=== PATIENT | male | born 1945 | race Caucasian/White ===

== ENCOUNTER 2018-03-20 07:16 | Outpatient (CLI) | payer MEDICARE, BC ==
--- NOTE | 2018-03-20 08:18 | RAD ---
FRONTAL AND LATERAL IMAGING CHEST: DATE: 03/20/18. COMPARISON: 05/18/17. HISTORY: Bladder cancer, kidney stones, assess lung parenchyma. FINDINGS: Postsurgical anchors overlie the left humeral head. There is increased linear interstitial density a nd pulmonary hyperinflation, stable. No focal consolidation or alveolar edema. IMPRESSION: Chronic findings as above. No acute findings. POS: [facility]
--- NOTE | 2018-03-20 08:39 | RAD ---
KUB: HISTORY: Bladder cancer. History of kidney stone. COMPARISON: An 05/18/17 CT examination. The bowel gas pattern is nonobstructed. Aortoiliac stent is noted and pos top what appeared to be radical prostatectomy changes are seen. It is difficult to definitively visu hipolito the lower pole left renal calculus, although there is a faint density. Possibly this calculus seen overlying the lower pole of the left kidney. No other findings. IMPRESSION: Left lower pole renal calculus is difficult to definitely visualize. There is a faint density in thi s region, although it does not appear to be dense enough to actually represent the calculus in questi on. POS: [facility]
== END 2018-03-20 07:17 | disposition home or self-care (01) ==
LOC: SCSRAD 07:16
PROVIDERS: ATTEND Urology
DX: C67.9 Malignant neoplasm of bladder, unspecified (principal)
CPT/HCPCS: 71046; 74018

== ENCOUNTER 2018-06-20 06:20 | Inpatient (IN) | payer MEDICARE, BC ==
[2018-06-20] MEDS ORDERED: CEFAZOLIN/Water 2 GM/20 ML SYRINGE ONE (06:33)
[2018-06-20] MEDS ORDERED: Protamine Sulfate 50 MG/5 ML VIAL ONE (06:45)
[2018-06-20] MEDS ORDERED: Heparin 5,000 UNITS/ML VIAL ONE (06:45)
[2018-06-20] MEDS ORDERED: Fentanyl 250 MCG/5 ML VIAL ONE (06:52)
[2018-06-20] MEDS ORDERED: Vecuronium 10 MG VIAL ONE (06:52)
[2018-06-20 07:01] LABS: #Basophils 0.1 thou/uL (0.0-0.2); #Eosinphils 0.3 thou/uL (0.0-0.7); #Lymphocytes 1.6 thou/uL (1.20-3.40); #Monocytes 0.6 thou/uL (0.11-0.59); #Neutrophils 3.9 thou/uL (1.40-6.50); %Basophils 1.3 % (0.0-1.0); %Eosinophils 4.9 % (0.0-10.0); %Lymphocytes 25.4 % (21.0-51.0); %Monocytes 8.6 % (0.0-10.0); %Neutrophils 59.9 % (42.0-75.0); Hemoglobin 13.1 g/dL (14.0-18.0); Mean Corpuscular HGB CONC 33.8 g/dL (32.0-36.0); Mean Corpuscular Hemoglobin 32.8 pg (27.0-31.0); Mean Corpuscular Volume 97.1 fL (78.0-98.0); Mean Platelet Volume 8.5 fL (7.4-10.4); Platelet Count 171 thou/uL (130-400); RBC Distribution Width 12.5 % (11.5-14.5); Red Blood Cell (RBC) Count 3.99 mill/uL (4.70-6.10); White Blood Cell (WBC) Count 6.4 thou/uL (4.8-10.8)
[2018-06-20] MEDS ORDERED: Midazolam HCl 2 mg/2 ml Vial ONE (07:15)
[2018-06-20 07:25] LABS: Anion Gap 14 mmol/L (10-20); BUN (Urea Nitrogen) 62 mg/dL (8.4-25.7); Calc. Creatinine Clearance 20 mL/min (70-130); Carbon Dioxide 18 mmol/L (23-31); Chloride 110 mmol/L (98-107); Estimated GFR-MDRD 12; Glucose 133 mg/dL (83-110); Potassium 4.9 mmol/L (3.5-5.1); Sodium 137 mmol/L (136-145)
[2018-06-20] MEDS ORDERED: Acetaminophen 325 MG TAB PO PRN (07:39)
[2018-06-20] MEDS ORDERED: hydrALAZINE 20 MG/ML VIAL SLOW IVP PRN (07:39)
[2018-06-20] MEDS ORDERED: HYDROcodone/Acetaminophen 5/325 mg Tablet PO PRN ×2 (07:39)
[2018-06-20] MEDS ORDERED: Ondansetron HCl/PF 4 MG/2 ML Vial IVP PRN ×2 (07:39→10:45)
--- NOTE | 2018-06-20 08:08 | RAD ---
CHEST PA AND LATERAL: Date: 06/20/18 HISTORY: 72-year-old male with history of preoperative evaluation. COMPARISON: 03/20/18. FINDINGS: Stable biapical pleural thickening. Heart size within normal limits. No confluent pneumonia, overt ed nemesio, or pleural effusion. IMPRESSION: Stable biapical pleural thickening. No significant acute intrathoracic disease. Atherosclerosis of ao rta. POS: [facility]
[2018-06-20] MEDS ORDERED: CINNAMON BARK PO SCH (09:00)
[2018-06-20] MEDS ORDERED: Non-Formulary Item 1 EACH (Dorzolamide Hcl/Timolol Maleat [Dorzolamide Hcl/Timolol Maleat EA EYE SCH (09:00)
[2018-06-20] MEDS ORDERED: hydrALAZINE 20 MG/ML VIAL ONE (09:44)
--- NOTE | 2018-06-20 10:22 | OP ---
DATE OF PROCEDURE: 06/20/2018 PROCEDURE PERFORMED: Right carotid endarterectomy. PREOPERATIVE DIAGNOSIS: Right carotid stenosis. POSTOPERATIVE DIAGNOSIS: Right carotid stenosis. SURGEON: Donald Anderson M.D. ANESTHESIA: General endotracheal anesthesia. INDICATIONS: The patient is a 72-year-old man with renal insufficiency who on routine followup of his aortoiliac disease was noted to have asymptomatic carotid bruits. Carotid ultrasonography suggested modest disease on the left side, but very high grade stenosis on the right. He is now taken to the operating room for endarterectomy based on the available studies. FINDINGS: Tortuous ICA with good ICA backbleeding. Heavy plaque burden, bulb and proximal ICA associated with a subtotal stenosis. Preshunt clamp time of 7 minutes. Shunt time was 15 minutes. Post-shunt clamp time was 3 minutes. NARRATIVE REPORT: After informed consent was obtained, the patient was taken to the operating room and placed in supine position on the operating table. After the induction of general anesthesia, the patient's neck was extended and rotated towards the left. His right neck was then prepped and draped in sterile fashion. An oblique incision was made in the skin crease on the right neck using a scalpel and electrocautery. The dissection was carried through the subcutaneous tissue and platysma anteromedial to the sternocleidomastoid muscle and internal jugular vein. The common carotid artery was dissected free from the sheath and the vagus nerve and was looped to the vessel loop. The dissection was carried cephalad beyond the level of the hypoglossal nerve and digastric muscle. The ansa cervicalis and sling vessels were divided to allow for adequate exposure of the internal carotid artery beyond the plaque without undue traction on the hypoglossal nerve. The external carotid system was looped and massed with a vessel loop and the internal carotid system was mobilized. After adequate circulation time of heparin, the internal carotid, common carotid, and external carotid systems were sequentially occluded. A longitudinal arteriotomy was made in the distal common carotid artery and extended proximally and distally with Slater scissors. An endarterectomy plane was developed at the level of the bulb, plaque was transected at the common carotid level everted from the external carotid system and then broken up distally. There was a small island of eccentric plaque distally and in order to achieve a clean feathering edge the arteriotomy was extended slightly distally and the plaque broken off distally in the internal carotid. The endarterectomy bed was forcefully irrigated paying particular attention to the distal feathering proximal transection points. An intraluminal carotid shunt was inserted first distally in the internal carotid and then proximally in the common carotid aspirating on the side port of the shunt for allowing antegrade flow through into the internal carotid artery. The endarterectomy bed was then serially irrigated and inspected and debrided until no more mobile debris remained. The arteriotomy was then sewn from either apex running 6-0 Prolene suture with about a 0.5 cm of arteriotomy left to sew, the shunt was clamped, cut, and removed and the remaining arteriotomy was then sewn with the suture line slightly frustrated, the vessels were allowed to forward and back bleed to allow for flushing of any air or residual debris at the arteriotomy or into the external carotid system. The suture line was secured and antegrade flow was allowed first into the external carotid and then into the internal carotid. The wound was inspected for gross hemostasis. There was a fair amount of oozing along the suture line of the internal carotid at the lesser curvature of a sharp bend, but there were no distinct bleeding points. The wound was packed off and heparin was partially reversed with protamine. After several minutes, the packing was removed and hemostasis appeared to be adequate. Surgicel was replaced within the lesser curvature of the internal carotid to guard against kinking and then the platysma was reapproximated with running 3-0 Vicryl. The skin was closed with a running 4-0 Vicryl, subcuticular suture and Steri- Strips. The wound was dressed. The patient was awakened and extubated in the operating room and taken to the recovery area in good condition, following commands with all 4 extremities. [facility]
[2018-06-20] MEDS ORDERED: Promethazine HCl 25 MG/ML VIAL SLOW IVP PRN (10:45)
[2018-06-20] MEDS ORDERED: Promethazine HCl 25 MG/ML VIAL IM PRN (10:45)
[2018-06-20] MEDS ORDERED: Fentanyl 100 MCG/2 ML VIAL ONE (10:50)
[2018-06-20] MEDS ORDERED: Atropine Sulfate 1 mg/10 ml Syringe ONE (11:01)
[2018-06-20 11:52] VITALS: BMI 31.2
[2018-06-20] MEDS: hydrALAZINE 25 MG TAB PO SCH (12:27)
[2018-06-20] MEDS: cloNIDine 0.3 MG TAB PO SCH ×2 (12:27→22:17)
[2018-06-20] MEDS: Dorzolamide HCl/Timolol Maleate 2%/0.5% Ophth Soln 10 ml Bottle EA EYE SCH ×2 (12:27→22:19)
[2018-06-20] MEDS: Terazosin HCl 5 MG CAP PO SCH (12:28)
[2018-06-20] MEDS: Multivit, Therapeutic 1 TAB PO SCH (12:28)
[2018-06-20] MEDS: Loratadine 10 MG TAB PO SCH (12:28)
[2018-06-20] MEDS: Sodium Chloride 0.9% 1,000 ML IV SCH ×2 (12:35→20:29)
[2018-06-20] MEDS ORDERED: Latanoprost 0.005% Ophth Soln 2.5 ml Bottle EA EYE SCH (21:00)
[2018-06-21] MEDS: Sodium Chloride 0.9% 1,000 ML IV SCH (03:38)
[2018-06-21 06:11] VITALS: BP 156/61
[2018-06-21 07:09] VITALS: TEMP 99
--- NOTE | 2018-06-21 07:42 | EKG ---
Test Reason : PREOP Blood Pressure : / mmHG Vent. Rate : 045 BPM Atrial Rate : 045 BPM P-R Int : 202 ms QRS Dur : 144 ms QT Int : 494 ms P-R-T Axes : 024 -55 -15 degrees QTc Int : 427 ms Marked sinus bradycardia Right bundle branch block Left anterior fascicular block Bifascicular block Nonspecific ST changes Abnormal ECG When compared with ECG of 27-MAY-2015 08:03, No significant change was found Confirmed by DR. Jessy ZAZUETA (3) on 06/21/2018 7:42:24 AM Referred By: SEGUNDO Confirmed By:DR. Jessy ZAZUETA
[2018-06-21] MEDS: cloNIDine 0.3 MG TAB PO SCH (08:42)
[2018-06-21] MEDS: Loratadine 10 MG TAB PO SCH (08:42)
[2018-06-21] MEDS: hydrALAZINE 25 MG TAB PO SCH (08:42)
[2018-06-21] MEDS: Dorzolamide HCl/Timolol Maleate 2%/0.5% Ophth Soln 10 ml Bottle EA EYE SCH (08:42)
[2018-06-21] MEDS: Multivit, Therapeutic 1 TAB PO SCH (08:43)
[2018-06-21] MEDS: Terazosin HCl 5 MG CAP PO SCH (08:43)
--- NOTE | 2018-06-21 22:44 | DIS ---
DATE OF ADMISSION: 06/20/2018 DATE OF DISCHARGE: 06/21/2018 PRINCIPAL DIAGNOSIS: Right carotid stenosis. PROCEDURE PERFORMED: Right carotid endarterectomy. HISTORY OF PRESENT ILLNESS AND HOSPITAL COURSE: The patient is a 72-year-old man with renal insuffic iency and peripheral vascular disease on routine followup for his vascular disease. Asymptomatic car otid bruits were noted. Ultrasonography suggested modest left-sided disease, but very convincingly s howed high-grade right carotid stenosis. In view of his renal insufficiency, it was opted to rely on the available imaging studies and after discussing treatment options with him, he was admitted for e lective right carotid endarterectomy. He had an uneventful overnight stay in the Intensive Care Unit and today on postoperative day #1, his heart rate and blood pressure are under adequate control. He is having no trouble with breathing or swallowing. His wound has no significant bruising or swellin g. His tongue is midline. His voice is normal. Smile is symmetric and he is able to move all extre mities equally to command. He is to resume his home medications, which include aspirin. I have writ ten a prescription for Vicodin as needed for pain. I will plan on seeing him in the office in around 2-3 weeks for a postop visit.
== END 2018-06-21 13:43 | disposition home or self-care (01) | DRG 38 ==
LOC: SURG A 06:20 → CCU 11:13
PROVIDERS: ADMIT Thoracic Surgery (Cardiothoracic Vascular Surgery); ATTEND Thoracic Surgery (Cardiothoracic Vascular Surgery)
PROC: 03CK0ZZ Extirpation of Matter from Right Internal Carotid Artery, Open Approach (ICD-10-PCS; principal; 2018-06-20)
DX: I65.21 Occlusion and stenosis of right carotid artery (principal); N18.5 Chronic kidney disease, stage 5; I73.9 Peripheral vascular disease, unspecified
CPT/HCPCS: 36415; 71046; 80048; 83970; 85025; 93005; 93010; 94640; J0360; J0461; J1642; J1644; J2250; J2720; J3010; J7620

== ENCOUNTER 2018-10-19 09:00 | Outpatient (CLI) | payer MEDICARE, BC ==
--- NOTE | 2018-10-19 10:29 | ULT ---
RENAL ULTRASOUND WITH RENAL ARTERY DOPPLER EVALUATION: DATE: 10/19/2018. HISTORY: Chronic kidney disease. COMPARISON: Noncontrast CT abdomen and pelvis on 05/18/2017. FINDINGS: The right kidney measures 12 cm x 4.3 cm. There are 2 anechoic structures seen within the left kidne y, each within the inferior pole, the largest measuring 3.9 cm and the 2nd smaller anechoic structure measuring 2.6 cm demonstrating sonographic characteristics most consistent with cysts. There is no hydronephrosis, renal calculus, or solid renal mass seen involving the left kidney. The right kidney is atrophied with echogenic appearance and renal cortical thinning. The right kidne y measures 7.7 cm x 4.1 cm. Atrophy of the right kidney was also noted on the prior CT exam. The la rger renal calculus in the inferior pole left kidney on that exam was not appreciated on this study. The urinary bladder is obscured due to bowel gas and not visualized. RENAL ARTERY DOPPLER EVALUATION: There are postsurgical changes involving the abdominal aorta related to an abdominal bifemoral bypass graft with endograft seen within the iliac limbs of the graft noted on prior CT exam. This limits e valuation of the abdominal aorta. Velocity measurements do appear diminished involving the abdominal aorta. I am unsure if this is artifactual or a real finding with peak systolic velocity in the abdo tia aorta of 16 cm/s. Peak systolic velocity in the left renal artery is 74.6 cm/s which gives an elevated renal artery to aorta ratio of 4.62, and greater than 3 is abnormal. However, there are dim inished velocities between the proximal left renal artery as well as the mid and distal left renal ar perla with peak systolic velocity in the left mid renal artery of 24.3 cm/s. Stenosis between the lev el of the proximal and mid left renal artery could not be entirely excluded given the significant dim inished velocity between the proximal mid left renal artery. The resistive index within the left arc uate artery is 0.56 with normal being less than 0.7. There is no significant flow present within the left renal artery. IMPRESSION: 1. Atrophied right kidney with increased echogenicity and renal cortical thinning of the right kidne y. In addition, no flow is detected within the right renal artery. 2. Left renal cysts. 3. Elevated left renal artery to aorta ratio. However, the accuracy of the velocity measurement wit hin the abdominal aorta is uncertain given the postsurgical changes and diminished velocity of 16 cm/ s was obtained. However, there is a discrepancy in the proximal right renal artery peak systolic alisia ocity compared to the mid renal artery velocity which may represent a significant stenosis between th kirby levels. POS: [facility]
== END 2018-10-19 09:01 | disposition home or self-care (01) ==
LOC: SCSULT 09:00
PROVIDERS: ATTEND Internal Medicine Nephrology
DX: N18.5 Chronic kidney disease, stage 5 (principal); N26.1 Atrophy of kidney (terminal); N28.1 Cyst of kidney, acquired; N28.89 Other specified disorders of kidney and ureter; R93.421 Abnormal radiologic findings on diagnostic imaging of right kidney; R93.422 Abnormal radiologic findings on diagnostic imaging of left kidney; Z98.890 Other specified postprocedural states
CPT/HCPCS: 76770; 93976

== ENCOUNTER 2018-11-26 10:41 | Outpatient (CLI) | payer MEDICARE, BC ==
--- NOTE | 2018-11-26 13:05 | CT ---
CT ABDOMEN WITHOUT CONTRAST: CT PELVIS WITHOUT CONTRAST: HISTORY: Aneurysm. Atherosclerosis. Bladder resection for bladder cancer. Follow-up exam. COMPARISON: 05/18/2017 TECHNIQUE: An abdomen and pelvis CT is performed without IV or oral contrast. Coronal reformatted images are george bmitted. FINDINGS: ABDOMEN: Chronic changes in the lung bases. There are coronary calcifications. There is atheroscle rosis of the descending thoracic aorta. Redemonstration of aneurysm involving the intrarenal abdomin al aorta. There appears to be an aortobifemoral graft, incompletely evaluated. There is a stent in the tejon abdominal aorta, extending to the tejon common iliac arteries. Stable atrophy of the rig ht kidney. Previously noted calcification in the left renal pelvis is not appreciated. Stable hypod ensity emanating from the mid pole left kidney with an attenuation coefficient compatible with a cyst . No evidence of left-sided obstructive uropathy. Right intrarenal collecting system and extrarenal collecting system are grossly unremarkable. No gastrohepatic, retrocrural, or periportal lymphadenopathy. No mesenteric mass, lymphadenopathy, free air, or free fluid. Ventral abdominal hernia repair is not ed. Stable diastasis. There is a stable urinary diversion in the right lower quadrant. Limited evaluation of the alimentary canal by lack of oral contrast. No evidence of bowel obstructio n. Stable anastomosis. There is diverticulosis in the descending colon and sigmoid colon. No evide nce of diverticulitis. No mesenteric mass, lymphadenopathy, or free air. Trace amount of fluid in both paracolic gutters. Normal caliber appendix is noted. PELVIS: No pelvic mass, lymphadenopathy, free air, or free fluid. No lytic or blastic lesion in the osseous structures. IMPRESSION: 1. Stable post surgical changes. 2. No evidence of obstructive uropathy. 3. The current study is limited in evaluation for significant narrowing of the renal arteries. Eval uation of the aorta, including the stent and bypass, is also limited. 4. Diverticulosis without evidence of diverticulitis. POS: [facility]
== END 2018-11-26 10:42 | disposition home or self-care (01) ==
LOC: SCSCT 10:41
PROVIDERS: ATTEND Urology
DX: C67.9 Malignant neoplasm of bladder, unspecified (principal); K57.30 Diverticulosis of large intestine without perforation or abscess without bleeding; I70.1 Atherosclerosis of renal artery; Z95.828 Presence of other vascular implants and grafts
CPT/HCPCS: 74176

== ENCOUNTER 2018-12-18 11:09 | Outpatient (CLI) | payer MEDICARE, BC ==
--- NOTE | 2018-12-18 13:16 | ULT ---
ULTRASOUND VENOUS MAPPING BILATERAL UPPER EXTREMITY: (VEIN MAPPING OF UPPER EXTREMITIES FOR DIALYSIS ACCESS) History: Chronic renal failure patient is a candidate for hemodialysis. Pre-surgical mapping planning. RIGHT UPPER EXTREMITY BRACHIAL ARTERY: 7.5 mm RADIAL ARTERY: 3 mm ULNAR ARTERY: 1.5 mm CEPHALIC VEIN Proximal Arm: 4.5 mm Mid Arm: 4 mm Distal Arm: 4.5 mm Antecubital Fossa: 5.5 mm Proximal Forearm: 3 mm Mid Forearm: 3 mm Distal Forearm: 3 mm BASILIC VEIN Proximal Arm: 2.5 mm Mid Arm: 2 mm Distal Arm: 2 mm Antecubital Fossa: 2.5 mm Proximal Forearm: 1.5 mm Mid Forearm: 1.5 mm Distal Forearm: 1 mm LEFT UPPER EXTREMITY BRACHIAL ARTERY: 4.5 mm RADIAL ARTERY: 3 mm ULNAR ARTERY: 2 mm CEPHALIC VEIN Proximal Arm: 4 mm Mid Arm: 4 mm Distal Arm: 4.5 mm Antecubital Fossa: 4 mm Proximal Forearm: 2 mm Mid Forearm: 2 mm Distal Forearm: 2 mm BASILIC VEIN Proximal Arm: 3.5 mm Mid Arm: 3.5 mm Distal Arm: 3 mm Antecubital Fossa: 3 mm Proximal Forearm: 2 mm Mid Forearm: 2.5 mm Distal Forearm: 2 mm IMPRESSION: Largest caliber veins are in the cephalic veins of the bilateral arms. POS: [facility]
== END 2018-12-18 11:10 | disposition home or self-care (01) ==
LOC: SCSULT 11:09
PROVIDERS: ATTEND Internal Medicine Nephrology
DX: Z01.818 Encounter for other preprocedural examination (principal); N18.5 Chronic kidney disease, stage 5
CPT/HCPCS: 93970; G0365

== ENCOUNTER 2019-01-16 07:51 | Day surgery (SDC) | payer MEDICARE, BC ==
[2019-01-15 09:37] VITALS: BMI 30.9
--- NOTE | 2019-01-15 13:47 | HP ---
HISTORY OF PRESENT ILLNESS: Nolberto Esquivel junior is a 73-year-old male patient referred by Dr. Sorensen to establish a dialysis access. He is left-handed. He is retired from [employer]. He has been very active physically in the past. He has had bladder cancer and Dr. Gupta performed a cystoprostatectomy with ileal conduit. He has a very large incisional hernia as result of that. He states he has seen Dr. Gaffney in the past who has recommended they not embark on repair of this very large hernia as the patient is very functional. The patient will need to start dialysis soon. He has had a previous right carotid endarterectomy, aortic stent requiring conversion to aortobifemoral bypass due to endoleak. He has had ultrasound vein mapping 12/18/2018, revealing good veins in his right arm, perhaps even fitting for a Humberto fistula as well as good veins in his left arm. As stated above, he is left handed. Plan is for right arm fistula as an outpatient. Anesthesia, regional TIVA versus general per anesthetic choice. MEDICATIONS: 1. Metoprolol 50 b.i.d. 2. Hydralazine 100 t.i.d. 3. Clonidine 0.3 mg b.i.d. 4. Aspirin 81 mg a day. 5. Terazosin 5 mg at bedtime. 6. Sodium bicarbonate 650 mg b.i.d. 7. Calcitriol 0.25 mcg daily. PAST MEDICAL HISTORY: He has seen Dr. Corral in the past where a cardiac stress test is negative. He has a history of PAD. He has had a right carotid endarterectomy. He has had an aortic stent complicated by endoleak requiring conversion to aortobifemoral bypass. He has had an ileal conduit with a possible cystectomy by Dr. Gupta. SOCIAL HISTORY: Tobacco, none. Alcohol, none. REVIEW OF SYSTEMS: Ten-point noncontributory. He is followed by Dr. Alfaro and Dr. Gupta. LABORATORY DATA: On 12/06/2018, BUN 58, creatinine 4.61, and GFR 12. PHYSICAL EXAMINATION: VITAL SIGNS: Weight 239 pounds, 6 feet tall. Temperature 97.9 degrees. HEAD, EARS, EYES, NOSE, AND THROAT: Unremarkable. LUNGS: Clear to auscultation. CARDIAC: Regular rate and rhythm without murmur or gallop. ABDOMEN: Soft and nontender. No mass. EXTREMITIES: Unremarkable. : Reveals ileal conduit. He has a very large incisional hernia. Palpable radial pulses bilaterally. ASSESSMENT AND PLAN: 1. End-stage renal disease, need dialysis access. We will plan establishment of right arm fistula, possible Humberto type. Anesthesia choice. Risks and benefits explained. He consents. 2. Large incisional hernia. 3. Ileal conduit, status post cystoprostatectomy. Job ID: [id number]
[2019-01-16 08:54] LABS: #Monocytes 0.6 thou/uL (0.11-0.59); Red Blood Cell (RBC) Count 4.18 mill/uL (4.70-6.10)
[2019-01-16 08:56] LABS: #Basophils 0.1 thou/uL (0.0-0.2); #Eosinphils 0.2 thou/uL (0.0-0.7); #Lymphocytes 1.3 thou/uL (1.20-3.40); %Eosinophils 4.1 % (0.0-10.0); %Lymphocytes 21.1 % (21.0-51.0); %Neutrophils 64.8 % (42.0-75.0); Hemoglobin 12.9 g/dL (14.0-18.0); Mean Corpuscular HGB CONC 33.3 g/dL (32.0-36.0); Mean Corpuscular Hemoglobin 30.9 pg (27.0-31.0); Mean Corpuscular Volume 92.9 fL (78.0-98.0); Mean Platelet Volume 8.7 fL (7.4-10.4); Platelet Count 175 thou/uL (130-400); RBC Distribution Width 12.6 % (11.5-14.5); White Blood Cell (WBC) Count 6.1 thou/uL (4.8-10.8)
[2019-01-16] MEDS ORDERED: Fentanyl 100 MCG/2 ML VIAL ONE ×2 (09:08→09:57)
[2019-01-16 09:18] LABS: Anion Gap 17 mmol/L (10-20); BUN (Urea Nitrogen) 62 mg/dL (8.4-25.7); Calc. Creatinine Clearance 19 mL/min (70-130); Calcium 9.9 mg/dL (7.8-10.44); Carbon Dioxide 19 mmol/L (23-31); Chloride 105 mmol/L (98-107); Estimated GFR-MDRD 11; Glucose 137 mg/dL (83-110); Sodium 136 mmol/L (136-145)
[2019-01-16] MEDS ORDERED: Heparin 10,000 UNITS/1 ML VIAL ONE (10:03)
[2019-01-16] MEDS ORDERED: Bupivacaine HCl 0.5%/Epinephrine 1:200,000/PF 30 ml Vial ONE ×2 (10:03→14:54)
[2019-01-16] MEDS ORDERED: Lidocaine 2% PF 5 ML VIAL ONE (10:03)
[2019-01-16] MEDS ORDERED: Protamine Sulfate 50 MG/5 ML VIAL ONE (10:03)
[2019-01-16] MEDS ORDERED: Heparin 5,000 UNITS/ML VIAL ONE (10:03)
[2019-01-16] MEDS ORDERED: PROPOFOL 20 ML ONE (11:31)
--- NOTE | 2019-01-16 15:05 | OP ---
DATE OF PROCEDURE: 01/16/2019 PREOPERATIVE DIAGNOSIS: Chronic kidney disease, not yet started dialysis. POSTOPERATIVE DIAGNOSIS: Chronic kidney disease, not yet started dialysis. PROCEDURES PERFORMED: Right arm primary fistula, perforating branch antecubital vein inflow, proximal radial artery outflow with cephalic vein only. No communication to the basilic vein. Retrograde antecubital vein preserved. 4.5 mm coronary dilator interrogation and outflow. Note, exploration of the wrist, findings cephalic vein at the wrist and adequate wound closure. ANESTHESIA: Regional TIVA. DESCRIPTION OF PROCEDURE: The patient was taken to the operating room where under intravenous sedation and regional anesthesia, right arm was prepared with ChloraPrep and draped in routine fashion. Incision was made in the right wrist. Cephalic vein was too small to use wound closed by approximating subcutaneous tissues with 3-0 Monocryl, skin with subdermal 4-0 Monocryl, and Lesage glue applied. Incision was made longitudinally above the antecubital fossa on the right arm, carried down through the skin and subcutaneous tissue. Antecubital vein dissected free of good caliber. Perforating branch antecubital vein dissected free, preserving nerves. Branches were divided between clips. The patient was given 6000 units of heparin intravenously. Vein interrogated after spatulating over branch points with coronary dilators outflow cephalic vein only. No communication in basilic vein appreciated. Coronary dilators from 2 mm to 4.5 mm passed without restriction. Excellent venous back-bleeding. Arteries were large and without disease. Brachial, radial, and ulnar arteries were dissected free. Proximal radial arteriotomy was made for 2 cm anastomosis and end vein to side proximal radial artery anastomosis created with continuous suture of 6-0 Prolene, completing the anastomosis. Given the patient 25 mg of protamine intravenously by Anesthesia. Subcutaneous tissue was approximated with 3-0 Monocryl, good hemostasis noted. Skin was approximated with subdermal 4-0 Monocryl and Lesage glue applied. Good Doppler signals in the cephalic vein outflow appreciated. Job ID: [id number]
[2019-01-16] MEDS ORDERED: Lidocaine 1% PF 5 ML VIAL ONE (15:11)
[2019-01-16] MEDS ORDERED: Glycopyrrolate 0.2 MG/ML 5 ML SYRINGE ONE (15:11)
[2019-01-16] MEDS ORDERED: PROPOFOL 200 MG/20 ML VIAL ONE (15:11)
[2019-01-16] MEDS ORDERED: Heparin 10,000 UNITS/ 10 ML VIAL ONE (15:11)
--- NOTE | 2019-01-16 16:50 | EKG ---
Test Reason : PREOP Blood Pressure : / mmHG Vent. Rate : 052 BPM Atrial Rate : 052 BPM P-R Int : 208 ms QRS Dur : 142 ms QT Int : 466 ms P-R-T Axes : 005 -62 -28 degrees QTc Int : 433 ms Sinus bradycardia Right bundle branch block Left anterior fascicular block Bifascicular block Abnormal ECG When compared with ECG of 20-JUN-2018 07:06, No significant change was found Confirmed by JED SIDDIQI, SObey ([id number]) on 01/16/2019 4:50:31 PM Referred By: SREE Confirmed By:DR. Marlin ADKINS MD
== END 2019-01-16 13:10 | disposition home or self-care (01) ==
LOC: SDC 07:51
PROVIDERS: ATTEND Specialist
PROC: 031B0ZF Bypass Right Radial Artery to Lower Arm Vein, Open Approach (ICD-10-PCS; principal; 2019-01-16)
DX: I12.0 Hypertensive chronic kidney disease with stage 5 chronic kidney disease or end stage renal disease (principal); E11.22 Type 2 diabetes mellitus with diabetic chronic kidney disease; N18.6 End stage renal disease; K43.2 Incisional hernia without obstruction or gangrene; M19.90 Unspecified osteoarthritis, unspecified site; Z79.82 Long term (current) use of aspirin; Z79.899 Other long term (current) drug therapy; Z88.8 Allergy status to other drugs, medicaments and biological substances; Z95.828 Presence of other vascular implants and grafts; Z93.6 Other artificial openings of urinary tract status
CPT/HCPCS: 80048; 85025; 93005; 93010; J0670; J1644; J2001; J2704; J2720; J3010

== ENCOUNTER 2020-08-06 08:58 | Outpatient (CLI) | payer MEDICARE, BC ==
--- NOTE | 2020-08-06 09:35 | RAD ---
CHEST 2 VIEWS: COMPARISON: 06/20/2018. HISTORY: Chronic renal failure. FINDINGS: Normal cardiac silhouette. The pulmonary vessels and hilum are normal. Costophrenic angles are mandy r. Chronic changes of the lung parenchyma, without consolidation or mass. No pneumothorax or acute osseous abnormalities. Atherosclerosis of the aorta is noted. IMPRESSION: Atherosclerosis. No acute cardiopulmonary process. POS: [facility]
[2020-08-06 11:30] LABS: #Basophils 0.1 thou/uL (0.0-0.2); #Eosinphils 0.2 thou/uL (0.0-0.7); #Lymphocytes 1.4 thou/uL (1.20-3.40); #Neutrophils 5.6 thou/uL (1.40-6.50); %Basophils 0.8 % (0.0-1.0); %Eosinophils 2.9 % (0.0-10.0); %Lymphocytes 17.4 % (21.0-51.0); %Monocytes 11.6 % (0.0-10.0); %Neutrophils 67.4 % (42.0-75.0); Hemoglobin 12.7 g/dL (14.0-18.0); Mean Corpuscular HGB CONC 33.3 g/dL (32.0-36.0); Mean Corpuscular Hemoglobin 32.7 pg (27.0-31.0); Mean Corpuscular Volume 98.2 fL (78.0-98.0); Mean Platelet Volume 9.3 fL (7.4-10.4); Platelet Count 124 thou/uL (130-400); RBC Distribution Width 11.9 % (11.5-14.5); Red Blood Cell (RBC) Count 3.88 mill/uL (4.70-6.10); White Blood Cell (WBC) Count 8.2 thou/uL (4.8-10.8)
[2020-08-06 12:00] LABS: HBSAB Concentration Less than 8.00 mIU/mL; HBSAg Index 0.14 S/CO (0-0.99); Hep B Core Total Ab Non-Reactive (NonReactive); Hep B Core Total Index 0.13 S/CO (0-0.79); Hep B Surf AB Non-Reactive (NonReactive); Hep B Surf Ag Non-Reactive S/CO (NonReactive); Hep C IgG Ab Non-Reactive (NonReactive); Hep C Index 0.15 S/CO (0-0.79)
== END 2020-08-06 08:59 | disposition home or self-care (01) ==
LOC: SCSRAD 08:58
PROVIDERS: ATTEND Internal Medicine Nephrology
DX: N18.5 Chronic kidney disease, stage 5 (principal); I70.90 Unspecified atherosclerosis
CPT/HCPCS: 36415; 71046; 85025; 86704; 86706; 86803; 87340

== ENCOUNTER 2025-06-04 10:26 | Outpatient (CLI) | payer MEDICARE, BC ==
[2025-06-04 12:17] LABS: #Basophils 0.04 10x3/uL (0.0-0.2); #Eosinophils 0.15 10x3/uL (0.0-0.7); #Monocytes 0.75 10x3/uL (0.11-0.59); #Neutrophils 8.52 10x3/uL (1.40-6.50); %Basophils 0.4 % (0.0-1.0); %Eosinophils 1.4 % (0.0-10.0); %Lymphocytes 13.2 % (21.0-51.0); %Monocytes 6.8 % (0.0-10.0); %Neutrophils 77.6 % (42.0-75.0); Hematocrit 34.3 % (42.0-52.0); Hemoglobin 10.7 g/dL (14.0-18.0); Mean Corpuscular Hemoglobin 27.4 pg (27.0-31.0); Mean Corpuscular Volume 87.9 fL (78.0-98.0); Platelet Count 198 10x3/uL (130-400); Red Blood Cell (RBC) Count 3.90 mill/uL (4.70-6.10); White Blood Cell (WBC) Count 10.98 10x3/uL (4.8-10.8)
[2025-06-04 12:28] LABS: INR-International Normal Ratio 1.1; PTT 32.3 sec (22.9-36.1); Prothrombin Time 14.5 sec (12.0-14.7)
[2025-06-04 12:50] LABS: Anion Gap 20 mmol/L (10-20); BUN (Urea Nitrogen) 37 mg/dL (8.4-25.7); Calc. Creatinine Clearance 0 mL/min (70-130); Calcium 9.1 mg/dL (7.8-10.44); Carbon Dioxide 28 mmol/L (23-31); Chloride 90 mmol/L (98-107); Glucose 163 mg/dL (83-110); Potassium 4.8 mmol/L (3.5-5.1); Sodium 133 mmol/L (136-145)
== END 2025-06-04 10:27 | disposition home or self-care (01) ==
LOC: LABBT 10:26
PROVIDERS: ATTEND Surgery
DX: Z01.818 Encounter for other preprocedural examination (principal); N18.6 End stage renal disease; I77.0 Arteriovenous fistula, acquired
CPT/HCPCS: 71046; 80048; 85025; 85610; 85730; 93005; 93010

== ENCOUNTER 2025-06-09 06:28 | Day surgery (SDC) | payer MEDICARE, BC ==
[2025-06-04 11:04] VITALS: BMI 27.8
[2025-06-09] MEDS ORDERED: Dextrose 50% Abboject 50 ML SYRINGE ONE (08:08)
[2025-06-09] MEDS ORDERED: Lidocaine 2% PF 100 mg/5 ml Syringe ONE (08:17)
[2025-06-09] MEDS ORDERED: fentaNYL PF 100 MCG/2 ML SYRINGE ONE (08:17)
[2025-06-09] MEDS ORDERED: PROPOFOL 20 ML ONE (08:18)
[2025-06-09] MEDS ORDERED: Heparin 5,000 UNITS/ML VIAL ONE (08:29)
[2025-06-09] MEDS ORDERED: Bupivacaine 0.25% HCL 30 ML VIAL ONE (08:30)
[2025-06-09 09:09] LABS: Potassium 4.2 mmol/L (3.5-5.1)
[2025-06-09] MEDS ORDERED: CEFAZOLIN 2 GM VIAL ONE (09:41)
[2025-06-09] MEDS ORDERED: Ondansetron PF 4 MG/2 ML Vial ONE (10:27)
[2025-06-09] MEDS ORDERED: Heparin 10,000 UNITS/ 10 ML VIAL ONE (10:58)
[2025-06-09] MEDS ORDERED: PHENYLEPHRINE-NS 100 MCG/ML 10 ML SYRINGE ONE (11:11)
== END 2025-06-09 12:34 | disposition home or self-care (01) ==
LOC: SDC 06:28
PROVIDERS: ATTEND Surgery
PROC: 03WY0JZ Revision of Synthetic Substitute in Upper Artery, Open Approach (ICD-10-PCS; principal; 2025-06-09)
DX: T82.898A Other specified complication of vascular prosthetic devices, implants and grafts, initial encounter (principal); I77.0 Arteriovenous fistula, acquired; E11.22 Type 2 diabetes mellitus with diabetic chronic kidney disease; N18.6 End stage renal disease; J44.9 Chronic obstructive pulmonary disease, unspecified; Z79.84 Long term (current) use of oral hypoglycemic drugs; Z79.82 Long term (current) use of aspirin; Z79.899 Other long term (current) drug therapy; Y83.2 Surgical operation with anastomosis, bypass or graft as the cause of abnormal reaction of the patient, or of later complication, without mention of misadventure at the time of the procedure
CPT/HCPCS: 36832; 75710; 82962; 84132; A6258; C1768; C1769 ×2; J1100; J1644 ×2; J2003; J2405; J2704; J7999; Q9967; 36416; J0169; J0665; J3373